=== PATIENT | female | born 1970 | race Caucasian/White ===

== ENCOUNTER 2017-10-12 18:44 | Emergency (ER) | payer OTHER ==
[~2017-10-12] VITALS: Ht 152.4 cm; Wt 77.1 kg
--- OUTSIDE RECORDS SUMMARY | ~2017-10-12 | XMS | Clinical Summary ---
Demographics + + + | Address | [address] | | | [place] [address] | + + + | Home Phone | | + + + | Preferred Language | Unknown | + + + | Marital Status | | + + + | Pentecostalism Affiliation | Unknown | + + + | Race | Unknown | + + + | Ethnic Group | Unknown | + + + Author + + + | Author | [facility] | + + + | Organization | [facility] | + + + | Address | Unknown | + + + | Phone | Unavailable | + + + Support + + +---------+ + | Name | Relationship | Address | Phone | + + +---------+ + | Akin Issa | ECON | Unknown | | + + +---------+ + | Jacinta Abdullahi | ECON | Unknown | | + + +---------+ + Care Team Providers + +------+ + | Care Mrb Engineer Name | Role | Phone | + +------+ + | Shan Gomez MD | PP | | + +------+ + Allergies + + + + + + | Active Allergy | Reactions | Severity | Noted | Comments | | | | | Date | | + + + + + + | Codeine | Nausea and Vomiting | Low | 10/31/19 | | | | | | 14 | | + + + + + + | Imipramine | Hallucinations | Medium | 05/12/20 | | | | | | 14 | | + + + + + + | Sulfa Antibiotics | Hives | High | 10/31/19 | | | | | | 14 | | + + + + + + Current Medications + + +-------+---------+------+------+-------+ | Prescription | Sig. | Disp. | Refills | Star | End | Statu | | | | | | t | Date | s | | | | | | Date | | | + + +-------+---------+------+------+-------+ | DULoxetine | Take 60 mg by mouth | | | | | Activ | | (CYMBALTA) [address] | daily. | | | | | e | | capsule | | | | | | | + + +-------+---------+------+------+-------+ | sumatriptan | Take 100 mg by mouth | | | | | Activ | | (IMITREX) 100 MG | as needed. | | | | | e | | tablet | | | | | | | + + +-------+---------+------+------+-------+ | Ondansetron HCl | Take by mouth as | | | | | Activ | | (ZOFRAN PO) | needed. | | | | | e | + + +-------+---------+------+------+-------+ | fentaNYL | Place 1 patch onto | | | | | Activ | | (DURAGESIC) 50 | the skin every third | | | | | e | | MCG/HR | day. | | | | | | + + +-------+---------+------+------+-------+ | Oxycodone HCl 10 | Take by mouth 2 | | | | | Activ | | MG TABS | (two) times daily. | | | | | e | + + +-------+---------+------+------+-------+ | naproxen | Take 500 mg by mouth | | | | | Activ | | (NAPROSYN) 500 MG | as needed. | | | | | e | | tablet | | | | | | | + + +-------+---------+------+------+-------+ | lisinopril | Take 40 mg by mouth | | | | | Activ | | (ZESTRIL) 40 MG | daily. | | | | | e | | tablet | | | | | | | + + +-------+---------+------+------+-------+ Active Problems + + + | Problem | Noted Date | + + + | Lumbar facet arthropathy | 08/16/2014 | + + + + + | Last Assessment & Plan: In summary, this is a 44 year old | | female who has low back pain with left and right L5-S1 radicular | | pain. Lumbar MRI performed elsewhere on 10-02-13 was reviewed | | that showed severe degenerative disk disease with right > left | | foraminal narrowing. On 05-31-14 she underwent a caudal with | | catheter lumbar epidural steroid injection targeting right and | | left L5 and S1 nerve roots. This injection helped her symptoms | | for 2 weeks but then her symptoms fully returned at the end of 4 | | weeks. She now returns to discuss options. Today she reports | | that the majority of her pain is back pain. Getting out of bed | | in the morning is difficult or changing positions. Her pain | | could be due to sacroiliitis versus facet hypertrophy. She has | | not tried physical therapy. She is unsure if her insurance would | | approve it or cover the costs. If not she is doubtful she could | | afford treatment. We will ask her primary to submit for | | physical therapy. If she is not able to go forward with physical | | therapy then may consider sacroiliac joint steroid injections. | + + + + + | Lumbar radicular pain | 04/30/2014 | + + + + + | Last Assessment & Plan: In summary, this is a 44 year old | | female who has low back pain with left and right L5-S1 radicular | | pain. Lumbar MRI performed elsewhere on 10-02-13 was reviewed | | that showed severe degenerative disk disease with right > left | | foraminal narrowing. I do not have images today to review. We | | are in the process of ordering them. Her symptoms could be due | | to the foraminal narrowing at L5-S1 versus sacroiliitis and/or | | facet hypertrophy. She has not tried physical therapy yet and a | | Rx was given. May consider a lumbar epidural steroid injection | | once I get to review her images.Plan, alternatives, risks and | | potential benefits of the procedure were explained to the patient | | in great detail. The patient understands that there is no | | guarantee they will get pain relief with this procedure. They | | also understand that if they do get pain relief that there is no | | way to know how long it will last. They also understand there is | | a risk to the procedure itself which includes but are not | | limited to infection, abscess, hematoma, nerve damage, paraplegia | | or quadriplegia, increased pain, spinal headache, stroke, and | | side effects from the medications themselves. The patient wishes | | to proceed. | + + + + + | DDD (degenerative disc disease), lumbar | 04/30/2014 | + + + + + | Last Assessment & Plan: Please see discussion under lumbar | | facet hypertrophy | + + + + + | Sacro-iliac pain | 04/30/2014 | + + + + + | Last Assessment & Plan: Please see discussion under lumbar | | facet hypertrophy | + + Family History + + +------+ + | Medical History | Relation | Name | Comments | + + +------+ + | Asthma | Father | | | + + +------+ + | Hypertension | Father | | | + + +------+ + | Other (see comments) | Father | | Borderline Diabetic | + + +------+ + | Testicular cancer | Father | | (Agent [place]) per patient | + + +------+ + | Throat cancer | Father | | (Agent [place]) per patient | + + +------+ + | Heart attack | Maternal | | | | | Grandfath | | | | | er | | | + + +------+ + | Cancer | Maternal | | | | | Grandmoth | | | | | er | | | + + +------+ + | COPD | Mother | | | + + +------+ + | Depression | Mother | | | + + +------+ + | Hypertension | Mother | | | + + +------+ + | Obesity | Mother | | | + + +------+ + | Other (see comments) | Mother | | Borderline Diabetic | + + +------+ + + +------+--------+ + | Relation | Name | Status | Comments | + +------+--------+ + | Father | | | | + +------+--------+ + | Maternal Grandfather | | | | + +------+--------+ + | Maternal Grandmother | | | | + +------+--------+ + | Mother | | | | + +------+--------+ + Social History + + + +--------+------+ | Tobacco Use | Types | Packs/Day | Years | Date | | | | | Used | | + + + +--------+------+ | Current Some Day | Cigarettes | | | | | Smoker | | | | | + + + +--------+------+ + + +---------+ + | Alcohol Use | Drinks/We | oz/Week | Comments | | | ek | | | + + +---------+ + | No | | | | + + +---------+ + + + + | Sex Assigned at | Date Recorded | | | | + + + | Not on file | | + + + Last Filed Vital Signs + + + + | Vital Sign | Reading | Time Taken | + + + + | Blood Pressure | 116/78 | 08/16/2014 10:59 AM PST | + + + + | Pulse | 80 | 05/31/2014 1:50 PM PST | + + + + | Temperature | 36.9 C (98.4 F) | 05/31/2014 12:27 PM PST | + + + + | Respiratory Rate | 16 | 05/31/2014 1:50 PM PST | + + + + | Oxygen Saturation | 97% | 05/31/2014 1:50 PM PST | + + + + | Inhaled Oxygen | - | - | | Concentration | | | + + + + | Weight | 87.8 kg (193 lb 8 | 08/16/2014 10:59 AM PST | | | oz) | | + + + + | Height | 160 cm (5' 3") | 08/16/2014 10:59 AM PST | + + + + | Body Mass Index | 34.28 | 08/16/2014 10:59 AM PST | + + + + Plan of Treatment + + + + + | Health Maintenance | Due Date | Last Done | Comments | + + + + + | Vaccine: | | | | | Dtap/Tdap/Td (1 - | 9 | | | | Tdap) | | | | + + + + + | Vaccine: | | | | | Pneumococcal 19-64 | 9 | | | | (PPSV23 only) Medium | | | | | Risk (1 of 1 - | | | | | PPSV23) | | | | + + + + + | Cervical Cancer | | | | | Screening (Pap) | 1 | | | + + + + + | Vaccine: Influenza | | | | | (Season Ended) | 8 | | | + + + + + Results Not on filefrom Last 3 Months Insurance + +--------+ +------+-------+ + | Payer | Benefi | Subscriber | Type | Phone | Address | | | t Plan | ID | | | | | | / | | | | | | | Group | | | | | + +--------+ +------+-------+ + | MEDICAID | [place] | xxxxxxxx | | | [address] | | | N | | | | [place] | | | [place] | | | | [phone] | | | PRICE CLERK | | | | | + +--------+ +------+-------+ + + +--------+ +--------+ + + | Guarantor Name | Accoun | Relation to | Date | Phone | Billing Address | | | t Type | Patient | of | | | | | | | | | | + +--------+ +--------+ + + | DIANA ISSA | Person | Self | [birth year] | Home: | [address] | | | al/Fam | | 1970 | [phone] | [address] [place] | | | [place] | | | [phone] | + +--------+ +--------+ + +
--- OUTSIDE RECORDS SUMMARY | ~2017-10-12 | XMS | Clinical Summary ---
Demographics + + + | Address | [address] | | | [place] [address] | + + + | Home Phone | | + + + | Preferred Language | Unknown | + + + | Marital Status | | + + + | Shinto Affiliation | Unknown | + + + | Race | Unknown | + + + | Ethnic Group | Unknown | + + + Author + + + | Author | [facility] | + + + | Organization | [facility] | + + + | Address [...] Team Providers + +------+ + | Care Improvement Director Name | Role | Phone | + [...] Testicular cancer | Father | | (Agent [place]) per patient | + + +------+ + | Throat cancer | Father | | (Agent [place]) per patient | + + +------+ + [...] | | [place] | | | | [phone] | | | [place] [employer] | | | | | + +--------+ [...] Self | [birth year] Home: | [address] | | | al/Fam | | 1970 | [phone] | [address] [place] | | | [place] | | | [phone] | [phone] | + +--------+ +--------+ + +
--- OUTSIDE RECORDS SUMMARY | ~2017-10-12 | XMS | Clinical Summary ---
Demographics + + + | Address | [address] | | | [place] [address] | + + + | Home Phone | | + + + | Preferred Language | Unknown | + + + | Marital Status | Single | + + + | Denominational Affiliation | Unknown | + + + | Race | Unknown | + + + | Ethnic Group | Unknown | + + + Author + + + | Author | [facility] | | | and [place] | + + + | Organization | [facility] | | | and [place] | + + + | Address | Unknown | + + + | Phone | Unavailable | + + + Support + + +---------+ + | Name | Relationship | Address | Phone | + + +---------+ + | SANA PORTILLO | ECON | Unknown | | + + +---------+ + Care Team Providers + +------+ + | Care Extrusion Utility Worker Name | Role | Phone | + +------+ + PP | Unavailable | + +------+ + Allergies Not on File Current Medications Not on file Active Problems Not on file Social History + +-------+ +--------+------+ | Tobacco Use | Types | Packs/Day | Years | Date | | | | | Used | | + +-------+ +--------+------+ | Never Assessed | | | | | + +-------+ +--------+------+ + + + | Sex Assigned at | Date Recorded | | | | + + + | Not on file | | + + + Plan of Treatment + + + + + | Health Maintenance | Due Date | Last Done | Comments | + + + + + | Vaccine: | | | | | Dtap/Tdap/Td (1 - | 9 | | | | Tdap) | | | | + + + + + | CERVICAL CANCER | | | | | SCREENING (PAP EVERY | 1 | | | | 3 YEARS 21-64 ) | | | | + + + + + | Vaccine: Influenza | | | | | (Season Ended) | 8 | | | + + + + + Results Not on filefrom Last 3 Months"
--- OUTSIDE RECORDS SUMMARY | ~2017-10-12 | XMS | Clinical Summary ---
Demographics + + + | Address | [address] | | | [place] [address] | + + + | Home Phone | | + + + | Preferred Language | Unknown | + + + | Marital Status | Single | + + + | Christianity Affiliation | Unknown | + + + | Race | Unknown | + + + | Ethnic Group | Unknown | + + + Author + + + | Author | [facility] | | | and [place] | + + + | Organization | [facility] | | | and [...] Team Providers + +------+ + | Care Sole Blacker Name | Role | Phone | + [...]
[~2017-10-12 18:44] MED LIST: CHLORTHALIDONE25 MG PO; CYMBALTA60 MG PO; DURAGESIC1 EACH TD; IMITREX100 MG PO; OXYCODONE HCL10 MG PO; POTASSIUM CHLO20 ME1 PO; PROMETHAZINE HC25 M1 PO; ZOFRAN ODT8 MG PO
[2017-10-12] MEDS ORDERED: HYDROCHLOROTHIA25 MG PO (19:06)
[2017-10-12] MEDS ORDERED: BUPRENORPHINE HC8 MG SL (19:07)
[2017-10-12] MEDS ORDERED: NAPROXEN250 MG PO (19:07)
[2017-10-12] MEDS ORDERED: DULOXETINE HCL60 MG PO (19:07)
[2017-10-12] MEDS ORDERED: LISINOPRIL40 MG PO (19:08)
[2017-10-12] MEDS ORDERED: BENADRYL25 MG PO (22:54)
[2017-10-12] MEDS ORDERED: EPIPEN 2-P0.3 MG/0.3 IM (22:57)
== END 2017-10-12 23:27 | disposition home or self-care (01) ==
LOC: ED 18:44
DX: T78.2XXA Anaphylactic shock, unspecified, initial encounter (principal); I10 Essential (primary) hypertension; F32.9 Major depressive disorder, single episode, unspecified; F41.9 Anxiety disorder, unspecified; F17.200 Nicotine dependence, unspecified, uncomplicated; Z88.6 Allergy status to analgesic agent; Z88.8 Allergy status to other drugs, medicaments and biological substances; Z88.2 Allergy status to sulfonamides; Z88.5 Allergy status to narcotic agent; Z79.899 Other long term (current) drug therapy; Z79.1 Long term (current) use of non-steroidal anti-inflammatories (NSAID)
CPT/HCPCS: 36415; 80053; 85025; 96372; 96374; 96375; 99284; J0171; J1200; J2060; J2930; J7030; Q0163

== ENCOUNTER 2022-12-27 01:30 | Emergency (ER) | payer OTHER ==
[~2022-12-27] VITALS: Ht 160 cm; Wt 77.1 kg
[~2022-12-27 01:30] MED LIST changes: +BENADRYL25 MG PO; +BUPRENORPHINE HC8 MG SL; +DULOXETINE HCL60 MG PO; +EPIPEN 2-P0.3 MG/0.3 IM; +HYDROCHLOROTHIA25 MG PO; +LISINOPRIL40 MG PO; +NAPROXEN250 MG PO
[2022-12-27 04:25] VITALS: BP 192/132
== END 2022-12-27 04:25 | disposition short-term general hospital (02) ==
LOC: ED 01:30
DX: I60.32 Nontraumatic subarachnoid hemorrhage from left posterior communicating artery (principal); F17.200 Nicotine dependence, unspecified, uncomplicated; Z88.2 Allergy status to sulfonamides; Z88.5 Allergy status to narcotic agent; Z88.8 Allergy status to other drugs, medicaments and biological substances; Z79.899 Other long term (current) drug therapy; Z20.822 Contact with and (suspected) exposure to COVID-19
CPT/HCPCS: 31500; 36415; 36556; 51702; 70450; 71045; 80053; 81001; 82803; 83605; 83735; 84484; 85025; 85610; 85730; 87502; 94002; 99285 25; C9803; J2704; J7121; U0002